=== PATIENT | female | born 1975 | race Two or more races ===

== ENCOUNTER 2020-10-20 18:56 | Emergency (ER) | payer OTHER ==
[~2020-10-20] VITALS: Ht 165.1 cm; Wt 75.0 kg
[2020-10-20 18:57] VITALS: BP 140/85
[2020-10-20] MEDS ORDERED: IBUP-2028 PO (20:01)
== END 2020-10-20 20:36 | disposition home or self-care (01) ==
LOC: ER 19:41
DX: M25.531 Pain in right wrist (principal); M25.511 Pain in right shoulder
CPT/HCPCS: 73030; 73110; 99284